=== PATIENT | male | born 1970 | race Two or more races ===

== ENCOUNTER 2017-11-03 15:57 | Emergency (ER) | payer BC, OTHER ==
[2017-11-03 16:34] VITALS: BP 139/77; PULSE 85; RESP 18; TEMP 99
[2017-11-03] MEDS ORDERED: DIPH,PERTUS(ACELL)TETVAC-LF 0.5 ML VIAL IM ONE (16:52)
--- NOTE | 2017-11-03 16:57 | ED ---
Skin/Abscess/FB HPI - General Chief complaint: Skin/Abscess/Foreign Body Stated complaint: IHS-Thumb Infection from wire Time Seen by Provider: 11/03/17 16:37 Source: patient, RN notes reviewed Mode of arrival: ambulatory Limitations: no limitations - History of Present Illness Initial comments: This is a 47-year-old male who presents to the emergency department with chief complaint of left thumb injury. 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 He states that he poked himself in the left thumb with a hot wire. He states he believes it went in approximately a quarter of an inch. He states that at the time he felt fine but then woke up at 1:00 in the morning with pain and swelling to the left thumb. He is concerned for infection. He states that he has difficulty moving the thumb due to pain. States he is not up-to-date with his tetanus vaccination. Denies any other injuries or trauma. Denies fevers or chills, chest pain or shortness of breath, abdominal pain, nausea or vomiting , dizziness or headache. - Related Data Home Medications Medication Instructions Recorded Confirmed Ibuprofen [Motrin Ib] 800 mg PO DAILY PRN 11/03/17 11/03/17 Previous Rx's Medication Instructions Recorded Amoxicillin/Potassium Clav 1 tab PO Q12HR #20 tab 11/03/17 [Augmentin 875-125 Tablet] Sulfamethox-Tmp 800-160Mg [Bactrim 1 tab PO Q12HR #20 tab 11/03/17 DS 800-160 mg] Allergies Allergy/AdvReac Type Severity Reaction Status Date / Time No Known Allergies Allergy Verified 11/03/17 16:41 Review of Systems ROS Statement: Those systems with pertinent positive or pertinent negative responses have been documented in the HPI. ROS Other: All systems not noted in ROS Statement are negative. Past Medical History Past Medical History: No Reported History History of Any Multi-Drug Resistant Organisms: None Reported Past Surgical History: No Surgical Hx Reported Past Psychological History: No Psychological Hx Reported Smoking Status: Current every day smoker Past Alcohol Use History: None Reported Past Drug Use History: None Reported General Exam - General Exam Comments Initial Comments: General: Awake and alert, well-developed; in no apparent distress. HEENT: Head atraumatic, normocephalic. Pupils are equal, round and reactive to light. Extraocular movements intact. Oropharynx moist without erythema or exudate. Neck: Supple. Normal ROM. Cardiovascular: Regular rate and rhythm. No murmurs, rubs or gallops. Chest symmetrical. Respiratory: Lungs clear to auscultation bilaterally. No wheezes, rales or rhonchi. Normal respiratory effort with no use of accessory muscles. Musculoskeletal: Limited range of motion of the IP joint of the left thumb due to pain. There is generalized swelling and tenderness of the left thumb. Sensation is intact. Radial pulses are 2+ equal and palpable bilaterally. Skin: [place], warm and dry. Approximately 2 mm circular pustule distal to the IP joint of the left thumb. This appears to be the entrance site of the metal wire. No surrounding erythema. Neurological: Alert and oriented x3. CN II-XII grossly intact. Speech is fluent and answers are appropriate. No focal neuro deficits. Psychiatric: Normal mood and affect. No overt signs of depression or anxiety noted. Limitations: no limitations Course Vital Signs 11/03/17 16:28 Temperature 99.0 F Pulse Rate 85 Respiratory 18 Rate Blood Pressure 139/77 O2 Sat by Pulse 98 Oximetry Medical Decision Making - Medical Decision Making This is a 47-year-old male who presents to the emergency department with chief complaint of left thumb injury. Patient accidentally poked himself with a hot wire yesterday. He is now experiencing pain and swelling to the left thumb. There is a small pustule and generalized swelling/pain in the left thumb. Patient has limited range of motion of the IP joint due to pain. Patient was made up-to-date with his tetanus vaccination. X-ray was obtained. This revealed no acute abnormalities. This case was discussed with attending physician, Dr. Myles who also evaluated the patient. Return parameters were discussed with patient at the time including fevers or chills and any spreading of redness or tenderness. Patient will be started on Augmentin and Bactrim. Vital signs are stable and he is in no acute distress. He will be discharged home at this time. Patient is in agreement with plan and voices understanding. All questions were answered. - Radiology Data Radiology results: report reviewed, image reviewed X-ray left thumb impression: Negative left thumb exam. Disposition Clinical Impression: Puncture wound of finger Disposition: HOME SELF-CARE Condition: Good Instructions: Puncture Wound (ED) Additional Instructions: Please take medications as prescribed. Please follow up with primary care provider within 1-2 days. Return to emergency department if symptoms should worsen or any concerns arise. Prescriptions: Amoxicillin/Potassium Clav [Augmentin 875-125 Tablet] 1 tab PO Q12HR #20 tab Sulfamethox-Tmp 800-160Mg [Bactrim DS 800-160 mg] 1 tab PO Q12HR #20 tab Is patient prescribed a controlled substance at d/c from ED?: No Referrals: None,Stated [Primary Care Provider] - 1-2 days Time of Disposition: 17:31
--- NOTE | 2017-11-03 17:07 | XR ---
EXAMINATION TYPE: XR finger LT DATE OF EXAM: 11/03/2017 COMPARISON: NONE HISTORY: Thumb pain TECHNIQUE: 3 views FINDINGS: I see no fracture nor dislocation. Joint spaces are fairly normal. IMPRESSION: Negative left thumb exam
== END 2017-11-03 18:17 | disposition home or self-care (01) ==
LOC: EC 15:57
DX: S61.032A Puncture wound without foreign body of left thumb without damage to nail, initial encounter (principal); F17.200 Nicotine dependence, unspecified, uncomplicated; Z23 Encounter for immunization; W26.8XXA Contact with other sharp object(s), not elsewhere classified, initial encounter; Y93.89 Activity, other specified; Y99.0 Civilian activity done for income or pay
CPT/HCPCS: 90471; 90715; 99283

== ENCOUNTER → 2019-01-12 | Outpatient (CLI) | payer OTHER ==
--- NOTE | 2019-01-12 13:09 | XR ---
Left hand HISTORY: Pain, contusion 3 views of the left hand Bone mineralization, joint spaces and alignment are maintained. IMPRESSION: No fracture or dislocation.
== END | disposition home or self-care (01) ==
LOC: RADXRMAIN 11:20
PROVIDERS: ATTEND Emergency Medicine
DX: S61.231A Puncture wound without foreign body of left index finger without damage to nail, initial encounter (principal)

== ENCOUNTER → 2021-01-07 | Outpatient (CLI) | payer OTHER ==
--- NOTE | 2021-01-07 15:01 | XR ---
Lumbar spine HISTORY: Low back pain,S39.012A 3 views of the lumbar spine Lumbar vertebral bodies show preserved height, alignment, bone mineralization. Is multilevel spondylo sis. Some mild loss of disc height L3-4, L5-S1. Sclerosis present in the posterior elements. There is a mild spinal curvature. IMPRESSION: Degenerative disc disease and facet arthropathy.
== END | disposition home or self-care (01) ==
LOC: RADXRMAIN 14:13
PROVIDERS: ATTEND Emergency Medicine
DX: M51.36 Other intervertebral disc degeneration, lumbar region (principal); M47.816 Spondylosis without myelopathy or radiculopathy, lumbar region
CPT/HCPCS: 72100

== ENCOUNTER 2021-07-18 09:02 | Day surgery (SDC) | payer OTHER ==
[2021-07-14 11:57] VITALS: BMI 33.1
--- NOTE | 2021-07-17 10:56 | HP ---
HISTORY AND PHYSICAL CHIEF COMPLAINT: Left shoulder pain. 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 He notes he hurt himself in the 35 years ago. He is having pain with overhead use and at night. He has tried therapy in addition to an injection and medications, without much relief. He notes daily pain that limits him. PAST MEDICAL HISTORY: Negative. PAST SURGICAL HISTORY: Negative. CURRENT MEDICATIONS: Loratadine. ALLERGIES: He notes allergies to BEE POLLEN and BEE WAX. SOCIAL HISTORY: Significant for one-quarter pack per day tobacco use and social alcohol use. REVIEW OF SYSTEMS: Sixteen-point review of systems otherwise reviewed and is noncontributory. Negative. FAMILY HISTORY: Negative. PHYSICAL EXAMINATION: On examination, the patient is approximately 6 feet 2 inches, 250 pounds of endomorphic habitus. HEENT exam is nonfocal. Neck is supple. On examination of his left shoulder, he is tender about the anterior subacromial space and over the acromioclavicular joint. Active range of motion: Forward elevation to 150 degrees, external rotation with arm at side 35 degrees, internal rotation to L1. Motor strength 4+ over 5 for abduction and external rotation with the arm at the side. Impingement test and Neer test are positive. He has pain with cross-body adduction. His distal neurovascular exam appears intact in the left upper extremity. MRI report left shoulder shows rotator cuff tendinosis in addition to mild glenohumeral joint osteoarthrosis. Acromioclavicular joint arthritis is noted with some subacromial impingement. IMPRESSION: 1. Left rotator cuff tendinitis/impingement. 2. Left acromioclavicular joint arthritis. 3. Left proximal bicipital tendinosis. RECOMMENDATIONS: I talked to the patient at length regarding his condition along with treatment options. At this point he remains quite symptomatic, having pain with overhead use and at night despite conservative treatment. After thorough discussion, he opts to proceed with surgery. We will plan to proceed with arthroscopic evaluation with probable rotator cuff debridement, possible biceps tenotomy and possible distal clavicular resection along with subacromial decompression. We will likely perform that as an outpatient procedure. Risks and benefits were discussed at length in layman's terms. MMODL / IJN: [id number] /
[~2021-07-18 09:02] MED LIST: DEXAMETHASONE SOD PHOSPHATE 4 MG/ML 1 ML VIAL IV ONE; HYDROmorphone 0.5 MG/0.5 ML SYRINGE IVP PRN; LACTATED RINGERS 1,000 ML IV SCH; MIDAZOLAM 2 MG/2 ML VIAL IV PRN; ONDANSETRON 4 MG/2 ML VIAL IVP ONE; SCOPOLAMINE 1.5MG/72HR PATCH TRANSDERM ONE
[2021-07-18 09:48] VITALS: RESP 16
[2021-07-18 09:59] LABS: Basophils % (A) 0 %; Eosinophils # (A) 0.3 k/uL (0-0.7); Eosinophils % (A) 3 %; HCT 47.4 % (39.0-53.0); HGB 15.7 gm/dL (13.0-17.5); Lymphocytes # (A) 2.5 k/uL (1.0-4.8); Lymphocytes % (A) 22 %; MCH 31.6 pg (25.0-35.0); MCHC 33.1 g/dL (31.0-37.0); MCV 95.4 fL (80.0-100.0); Mean Platelet Volume 6.8; Monocytes # (A) 0.5 k/uL (0-1.0); Monocytes % (A) 4 %; Neutrophils # (A) 7.6 k/uL (1.3-7.7); Neutrophils % (A) 68 %; Platelet Count 315 k/uL (150-450); RBC 4.96 m/uL (4.30-5.90); RDW 13.6 % (11.5-15.5); WBC 11.3 k/uL (3.8-10.6)
[2021-07-18] MEDS ORDERED: MIDAZOLAM 2 MG/2 ML VIAL IVP ONE (10:21)
[2021-07-18] MEDS ORDERED: fentaNYL (PF) 50 MCG/ML 2 ML AMP IVP ONE (10:21)
[2021-07-18] MEDS ORDERED: EPINEPHrine (PF) 1 ML in SODIUM CHLORIDE 0.9% IRRIGATIO 3,000 ML IRRIGATION ONE ×14 (10:47→10:48)
[2021-07-18] MEDS ORDERED: fentaNYL (PF) 50 MCG/ML 2 ML AMP ONE (10:48)
[2021-07-18] MEDS ORDERED: MIDAZOLAM 2 MG/2 ML VIAL ONE (10:48)
[2021-07-18] MEDS ORDERED: SUCCINYLCHOLINE CHLORIDE 100 MG/5 ML SYR IV ONE (10:48)
[2021-07-18] MEDS ORDERED: PHENYLEPHRINE-0.9% NACL SYG 1,000 MCG/10 ML SYRINGE ONE (10:48)
[2021-07-18] MEDS ORDERED: PROPOFOL 10 MG/ML 20 ML VIAL IV ONE (10:48)
[2021-07-18] MEDS ORDERED: ROPIVACAINE 5 MG/ML 30 ML VIAL ONE (10:48)
[2021-07-18] MEDS ORDERED: LIDOCAINE 1% INJ 10MG/ML (20 ML MDV) ONE (10:48)
[2021-07-18] MEDS ORDERED: LACTATED RINGERS 1,000 ML IV ONE (11:29)
--- NOTE | 2021-07-18 12:02 | P.OP ---
Date of Procedure: 07/18/21 Preoperative Diagnosis: Left shoulder impingement/acromioclavicular joint arthritis/bicipital tendinitis Postoperative Diagnosis: Same in addition to synovitis Procedure(s) Performed: Left shoulder arthroscopic partial synovectomy/subacromial decompression/distal clavicular resection Anesthesia: CONSUELO, vikki Surgeon: Balaji Wiseman Search Lead #1: Jaleel Marlow Estimated Blood Loss (ml): 10 Pathology: none sent Condition: stable Disposition: PACU Indications for Procedure: The patient's a 51-year-old male presents with progressive left shoulder pain despite conservative measures. A discussion of the risks and benefits of operative intervention versus continued conservative measures was made with patient. He opted to proceed with surgery. Operative risks to include infection, neurovascular injury, development of blood clots, possible postoperat jony stiffness and need for subsequent procedures was discussed. Informed consent was obtained. Operative Findings: As below Description of Procedure: The patient was brought to the operating room, and after induction of general anesthesia was placed in a beachchair position. A preoperative interscalene block was placed for postoperative analgesia. I examined the left shoulder. There was no gross block to passive motion or gross glenohumeral instability. The left upper extremity was prepped and draped in normal fashion. The bony outlines the acromion, distal clavicle, and coracoid process were outlined with a skin marker. The glenohumeral joint was inflated with 50 mL of saline utilizing a spinal needle from posterior approach. A posterior portal was made through a 5 mm skin incision 1 cm medial and inferior to the posterior lateral border time. A blunt trocar was used to easily into the joint. Diagnostic arthroscopy was performed. An anterior portal was made just lateral to the coracoid process entering the joint above the subscapularis tendon. The subscapularis tendon appeared to be intact. There was marked synovitis involving the rotator interval. This was debrided with motorized shaver. Anterior labrum was intact. The inferior recess was inspected. The posterior labrum was intact. The intra-articular portion of the long head of the biceps appeared to be intact with some erythema. It's anchor was also intact. On inspection the rotator cuff, it was intact on the articular surface. The arthroscope was placed into the subacromial space. A lateral portal was made 2 centimeters inferior to the anterior lateral border of the acromion. Significant bursitis was noted in the subacromial space. This was debrided with a motorized shaver. The rotator cuff tendons appeared intact on the bursal surface, however did have some fraying. The soft tissue on the undersurface of the acromion was debrided with a motorized shaver and electrocautery clearly defining the anterior medial and lateral borders as well as the distal clavicle. An anterior inferior acromioplasty was performed with a motorized immanuel starting anterolateral, then extending this posteriorly, then extending this medially. I converted to a flat acromion and this was verified in the posterior and lateral viewing portals. The distal clavicle was identified and the distal 4 mm was resected with a motorized immanuel as was significant arthritis and inferior spur that appeared to impinge in the subacromial space. The arthroscope was then removed. The portals were closed with simple 3-0 nylon sutures. A sterile dressing was applied in addition to a sling. The patient was then awoken from general anesthesia and transferred to recovery room in good condition. Blood loss was estimated at 10 mL. No complications were incurred. Sponge and needle counts were correct in the case. Jaleel KNAPP assisted and the major components of the case to include arm positioning, decompression, distal clavicular resection, and closure.
[2021-07-18 12:14] VITALS: TEMP 96.8
[2021-07-18 13:53] VITALS: BP 119/74; PULSE 74
--- NOTE | 2021-07-18 13:57 | P.ANPRN ---
Procedure Note - Anesthesia - Nerve Block Performed Left Interscalene Time Out Performed: Yes (:) Date of Procedure: 07/18/21 Procedure Start Time: Procedure Stop Time: Location of Patient: PreOp Indication: Acute Post-Operative Pain, Requested by Surgeon (Dr Wiseman) Sedation Type: Sedate with meaningful contact maintained Preparation: Sterile Prep Position: Supine Catheter: None Needle Types: Pajunk Needle Gauge: Other (see comment) (22g) Ultrasound used to visualize needle placement: Yes Ultrasound used to observe medication spread: Yes Injectate: 0.5% Ropivacaine (see comment for volume) (20cc) Blood Aspirated: No Pain Paresthesia on Injection Noted: No Resistance on Injection: Normal Image Stored and Saved: Yes Events: Uneventful and Well Tolerated
== END 2021-07-18 13:56 | disposition home or self-care (01) ==
LOC: OR 09:02
PROVIDERS: ATTEND Orthopaedic Surgery
DX: M25.812 Other specified joint disorders, left shoulder (principal); M75.42 Impingement syndrome of left shoulder; M75.22 Bicipital tendinitis, left shoulder; M65.9 Synovitis and tenosynovitis, unspecified
CPT/HCPCS: 29820; 29822; 64415; 76942; 85025; J2250; J1100; J0690; J2405; J0171; J2001; J3010; J2795; J2370; J0330; J2704